=== PATIENT | female | born 1965 | race Two or more races ===

== ENCOUNTER 2019-02-21 12:00 | Emergency (ER) | payer OTHER ==
[~2019-02-21] VITALS: Ht 160 cm; Wt 68.0 kg
[2019-02-21] MEDS ORDERED: HYDROCODONE/APAP 5-325MG TABLET ONE (12:28)
[2019-02-21] MEDS ORDERED: HYDROCODONE/APAP 5-325MG TABLET PO ONE (12:30)
--- NOTE | 2019-02-21 13:01 | NUR ---
Patient discharged to home in stable conditon. Written and verbal after care instructions given. Patient verbalizes understanding of instructions.PT WALKS IN STEADY GAIT. THE BOOT THAT THE PT CAME WITH PLACED BACK PER MD ORDER.
== END 2019-02-21 13:03 | disposition home or self-care (01) ==
LOC: ER 12:07
DX: M79.672 Pain in left foot (principal); M77.32 Calcaneal spur, left foot
CPT/HCPCS: 73630; A4663